=== PATIENT | male | born 1970 | race Caucasian/White ===

== ENCOUNTER 2021-11-30 11:56 | Day surgery (SDC) | payer MEDICARE ==
[2021-11-30] MEDS ORDERED: Sodium Chloride 0.9(Preservative Free) 10 ML IJ ONE (11:57)
[2021-11-30] MEDS ORDERED: Depo-Medrol 40 MG/ML IM ONE (11:57)
[2021-11-30] MEDS ORDERED: DIPRIVAN 200 MG/20 ML IV ONE (14:00)
[2021-11-30] MEDS ORDERED: Lactated Ringers 1,000 ML IV ONE (14:23)
--- NOTE | 2021-11-30 16:54 | XRAY ---
Indication: Right L4-S1 transforaminal FAHAD. Intraoperative fluoroscopy provided for 1 minute 3 seconds. 5 digital spot image submitted for interpretation images demonstrates posterior needle tip projecting over the right L4 and L5 nerve roots. Small amount of contrast injected for needle tip placement. Correlate with intraoperative findings/report. Incidental bilateral posterior L3-S1 fusion hardware.
--- NOTE | 2021-11-30 16:56 | XRAY ---
1 minute and 3 seconds of fluoroscopy was used in surgery for a right L4-S1 transforaminal FAHAD.
== END 2021-11-30 14:30 | disposition home or self-care (01) ==
LOC: SDC-PAIN 11:56
PROVIDERS: ATTEND Psychiatry & Neurology Pain Medicine
DX: M54.16 Radiculopathy, lumbar region (principal); Z79.899 Other long term (current) drug therapy
CPT/HCPCS: 64483; 64484; 72100; 77003; J1030; J2704; Q9966

== ENCOUNTER 2022-09-20 13:20 | Day surgery (SDC) | payer MEDICARE ==
[2022-09-20] MEDS ORDERED: LIDOCAINE HCL 1% 50 MG/5 ML VL PF IJ ONE (13:21)
[2022-09-20] MEDS ORDERED: Depo-Medrol 40 MG/ML IM ONE (13:21)
[2022-09-20] MEDS ORDERED: BUPIVACAINE 0.5% VIAL IJ ONE (13:21)
--- NOTE | 2022-09-20 17:03 | XRAY ---
Indication: Right shoulder and subacromial bursa injection. Intraoperative fluoroscopy provided for 20 seconds. 2 digital spot images submitted for interpretation demonstrates needle tip projecting over the right glenohumeral joint superiorly. Second needle tip subacromial. Small amount of contrast injected for needle tip placement. Correlate with intraoperative findings/report.
--- NOTE | 2022-09-21 08:47 | XRAY ---
20 seconds of fluoroscopy was used in surgery for a right intra-articular shoulder and right subacromial bursa injection.
== END 2022-09-20 16:22 | disposition home or self-care (01) ==
LOC: SDC-PAIN 13:20
PROVIDERS: ATTEND Psychiatry & Neurology Pain Medicine
DX: M19.011 Primary osteoarthritis, right shoulder (principal); M75.51 Bursitis of right shoulder; Z79.899 Other long term (current) drug therapy
CPT/HCPCS: 20610; 73030; 77002; J1030; J2001; Q9966

== ENCOUNTER 2022-12-06 10:46 | Day surgery (SDC) | payer MEDICARE ==
[2022-12-06] MEDS ORDERED: Depo-Medrol 40 MG/ML IM ONE (10:47)
[2022-12-06] MEDS ORDERED: Sodium Chloride 0.9(Preservative Free) 10 ML IJ ONE (10:47)
[2022-12-06] MEDS ORDERED: LIDOCAINE HCL 1% 50 MG/5 ML VL PF IJ ONE (10:47)
[2022-12-06] MEDS ORDERED: Decadron 4 MG INJ IV ONE (10:47)
[2022-12-06] MEDS ORDERED: DIPRIVAN 200 MG/20 ML IV ONE (14:00)
--- NOTE | 2022-12-06 15:15 | XRAY ---
Indication: Caudal FAHAD. Intraoperative fluoroscopy provided for 14 seconds. 3 digital spot images submitted for interpretation demonstrates caudal needle tip projecting mid sacrum. Small amount of contrast injected for needle tip placement. Correlate with intraoperative findings/report. Incidental incompletely visualized lumbosacral fusion hardware.
--- NOTE | 2022-12-06 15:16 | XRAY ---
Indication: Right piriformis injection. Intraoperative fluoroscopy provided for 7 seconds. Single digital spot image submitted for interpretation demonstrates posterior needle tip projecting over for piriformis. Small amount of contrast injected for needle tip placement. Correlate with intraoperative findings/report.
[2022-12-06] MEDS ORDERED: Lactated Ringers 1,000 ML IV ONE (17:03)
--- NOTE | 2022-12-06 17:04 | XRAY ---
14 seconds of fluoroscopy was used in surgery for a caudal FAHAD.
--- NOTE | 2022-12-06 17:04 | XRAY ---
7 seconds of fluoroscopy was used in surgery for a right piriformis injection.
== END 2022-12-06 14:35 | disposition home or self-care (01) ==
LOC: SDC-PAIN 10:46
PROVIDERS: ATTEND Psychiatry & Neurology Pain Medicine
DX: M54.12 Radiculopathy, cervical region (principal); M79.18 Myalgia, other site; Z79.899 Other long term (current) drug therapy
CPT/HCPCS: 20552; 62323; 72170; 72220; 77002; 77003; J1030; J1100; J2001; J2704; Q9966

== ENCOUNTER 2023-02-28 10:58 | Day surgery (SDC) | payer MEDICARE ==
[2023-02-28] MEDS ORDERED: LIDOCAINE HCL 2% 100 MG/5 ML IJ ONE (10:59)
[2023-02-28] MEDS ORDERED: DIPRIVAN 200 MG/20 ML IV ONE ×2 (13:03→13:10)
--- NOTE | 2023-02-28 15:04 | XRAY ---
Indication: Bilateral L4-S1 MBB. Intraoperative fluoroscopy provided for 45 seconds. 3 digital spot images submitted for interpretation demonstrates posterior needle tips projecting over the expected left and right L4-S1 nerve roots. Correlate with intraoperative findings/report. Incidental incompletely visualized lumbosacral fusion hardware.
[2023-02-28] MEDS ORDERED: Lactated Ringers 1,000 ML IV ONE (16:50)
--- NOTE | 2023-02-28 16:57 | XRAY ---
45 seconds of fluoroscopy was used in surgery for a bilateral L4-S1 MBB.
== END 2023-02-28 13:30 | disposition home or self-care (01) ==
LOC: SDC-PAIN 10:58
PROVIDERS: ATTEND Psychiatry & Neurology Pain Medicine
DX: M47.816 Spondylosis without myelopathy or radiculopathy, lumbar region (principal)
CPT/HCPCS: 64493; 64494; 72020; 77002; J2704

== ENCOUNTER 2023-04-04 10:56 | Day surgery (SDC) | payer MEDICARE ==
[2023-04-04] MEDS ORDERED: BUPIVACAINE 0.5% VIAL IJ ONE (10:57)
[2023-04-04] MEDS ORDERED: DIPRIVAN 200 MG/20 ML IV ONE (13:33)
[2023-04-04] MEDS ORDERED: Lactated Ringers 1,000 ML IV ONE (13:42)
--- NOTE | 2023-04-04 16:59 | XRAY ---
Indication: Bilateral L4-S1 MBB. Intraoperative fluoroscopy provided for 35 seconds. 2 digital spot images submitted for interpretation demonstrates posterior needle tips projecting over the expected left and right L4-S1 nerve roots. Correlate with intraoperative findings/report. Incidental incompletely visualized multilevel lumbosacral fusion hardware.
--- NOTE | 2023-04-04 17:41 | XRAY ---
35 seconds of fluoroscopy was used in surgery for a bilateral L4-S1 MBB.
== END 2023-04-04 14:06 | disposition home or self-care (01) ==
LOC: SDC-PAIN 10:56
PROVIDERS: ATTEND Psychiatry & Neurology Pain Medicine
DX: M47.816 Spondylosis without myelopathy or radiculopathy, lumbar region (principal)
CPT/HCPCS: 64493; 64494; 72020; 77002; J2704

== ENCOUNTER 2023-05-09 08:16 | Day surgery (SDC) | payer MEDICARE ==
[2023-05-09] MEDS ORDERED: BUPIVACAINE 0.5% VIAL IJ ONE (08:17)
[2023-05-09] MEDS ORDERED: LIDOCAINE HCL 1% 50 MG/5 ML VL PF IJ ONE (08:17)
[2023-05-09] MEDS ORDERED: DIPRIVAN 200 MG/20 ML IV ONE ×2 (11:38→11:53)
[2023-05-09] MEDS ORDERED: Lactated Ringers 1,000 ML IV ONE (15:01)
--- NOTE | 2023-05-09 15:13 | XRAY ---
Indication: Right L4-S1 RFA. Intraoperative fluoroscopy provided for 35 seconds. 5 digital spot images submitted for interpretation demonstrates posterior needle tips projecting over the expected right L4-S1 nerve roots. Correlate with intraoperative findings/report. Incidental bilateral posterior L3-S1 fusion hardware.
--- NOTE | 2023-05-09 15:20 | XRAY ---
35 seconds of fluoroscopy was used in surgery for a right L4-S1 RFA.
== END 2023-05-09 12:12 | disposition home or self-care (01) ==
LOC: SDC-PAIN 08:16
PROVIDERS: ATTEND Psychiatry & Neurology Pain Medicine
DX: M47.816 Spondylosis without myelopathy or radiculopathy, lumbar region (principal); E11.9 Type 2 diabetes mellitus without complications
CPT/HCPCS: 64635; 64636; 72100; 77002; 82947; J2001; J2704

== ENCOUNTER 2023-05-16 08:19 | Day surgery (SDC) | payer MEDICARE ==
[2023-05-16] MEDS ORDERED: LIDOCAINE HCL 1% 50 MG/5 ML VL PF IJ ONE (08:20)
[2023-05-16] MEDS ORDERED: Depo-Medrol 40 MG/ML IM ONE (08:20)
[2023-05-16] MEDS ORDERED: BUPIVACAINE 0.5% VIAL IJ ONE (08:20)
[2023-05-16] MEDS ORDERED: DIPRIVAN 200 MG/20 ML IV ONE (10:23)
[2023-05-16] MEDS ORDERED: BREVIBLOC 100 MG/10 ML IV ONE (10:32)
[2023-05-16] MEDS ORDERED: Lactated Ringers 1,000 ML IV ONE (10:55)
--- NOTE | 2023-05-16 11:37 | XRAY ---
Indication: Left L4-S1 RFA. Intraoperative fluoroscopy provided for 24 seconds. 4 digital spot image submitted for interpretation demonstrates posterior needle tips projecting over the expected left L4-S1 nerve roots. Correlate with intraoperative findings/report. Incidental incompletely visualized multilevel bilateral lumbar fusion hardware.
--- NOTE | 2023-05-16 13:08 | XRAY ---
24 seconds of fluoroscopy was used in surgery for a left L4-S1 RFA.
== END 2023-05-16 10:52 | disposition home or self-care (01) ==
LOC: SDC-PAIN 08:19
PROVIDERS: ATTEND Psychiatry & Neurology Pain Medicine
DX: M47.817 Spondylosis without myelopathy or radiculopathy, lumbosacral region (principal); E11.9 Type 2 diabetes mellitus without complications
CPT/HCPCS: 64635; 64636; 72100; 77002; 82947; J1030; J2001; J2704